=== PATIENT | male | born 1960 | race Two or more races ===

== ENCOUNTER 2019-08-27 08:03 | Day surgery (SDC) | payer OTHER ==
[~2019-08-27 08:03] MED LIST: PROPOFOL INJ 200 MG/20 ML VIAL IV ONE
[2019-08-27 10:50] VITALS: BP 112/75
--- NOTE | 2019-08-27 12:13 | Operative Report ---
Operative Report DATE OF SURGERY: 08/27/19 Operative Report: The risk, benefits and alternatives of the procedure including the risk of bleeding, perforation requiring surgery have been explained to the patient in detail and informed consent has been obtained. Patient is placed on left, lateral decubital position. Timeout was called. Propofol medication is administered. Rectal examination is done which did not reveal any masses, tears or fissures. An Olympus videoscope was introduced into the patient's rectum. Scope was then carefully advanced all the way to the cecum. There is an anastomosis noted in the area of the sigmoid. However the cecum is reached cecum was identified by the usual anatomical landmarks of the ileocecal valve as well as the appendiceal office. Photodocumentation is obtained. Scope was then sequentially pulled back through the various segments of the colon including the ascending colon, hepatic flexure, transverse colon, splenic flexure, descending colon and finally into the rectosigmoid area. Retroflexion maneuvers performed. PREOPERATIVE DIAGNOSIS: Personal history of colorectal cancer with colon segmental resection POSTOPERATIVE DIAGNOSIS: Biopsy obtained at the anastomosis. Otherwise normal colonoscopy. Mild internal hemorrhoids OPERATION: Colonoscopy with biopsy SURGEON: MAKEDA GANN ANESTHESIA: LMAC TISSUE REMOVED OR ALTERED: As noted above. COMPLICATIONS: None. ESTIMATED BLOOD LOSS: None. INTRAOPERATIVE FINDINGS: As noted above. PROCEDURE: Patient tolerated the procedure well. No immediate postprocedure complications are noted. Patient is discharged in good condition. Discharge date 08/27/2019. Discharge diet: Regular. Discharge activity: Regular. 2 to 3-week follow-up to discuss findings. Patient is instructed to call the office or proceed to the emergency room should there be any further problems or questions. Wait on the pathology. 3-year surveillance colonoscopy
== END 2019-08-27 10:50 | disposition home or self-care (01) ==
LOC: END 08:03
PROVIDERS: ATTEND Internal Medicine Gastroenterology
DX: Z12.11 Encounter for screening for malignant neoplasm of colon (principal); Z85.038 Personal history of other malignant neoplasm of large intestine; Z87.891 Personal history of nicotine dependence; Z79.899 Other long term (current) drug therapy; Z79.82 Long term (current) use of aspirin; K64.8 Other hemorrhoids
CPT/HCPCS: 45380; 82962; 88305 ×2; 00811; J2704; 811